=== PATIENT | male | born 1970 | race Two or more races ===

== ENCOUNTER 2018-11-23 14:52 | Emergency (ER) | payer MEDICAID, OTHER ==
[~2018-11-23] VITALS: Ht 165.1 cm; Wt 95.3 kg
[2018-11-23 14:56] VITALS: BP 140/93
== END 2018-11-23 17:32 | disposition home or self-care (01) ==
LOC: ER 14:57
DX: J02.9 Acute pharyngitis, unspecified (principal)

== ENCOUNTER 2020-10-24 11:38 | Inpatient (IN) | payer MEDICAID, OTHER, SELFPAY ==
[~2020-10-24] VITALS: Ht 165.1 cm; Wt 91.6 kg
[2020-10-24 14:44] LABS: Basophils # (auto) 0 10 ^3/uL (0-0.2); Basophils % (auto) 0.2 % (0.0-2.0); Eosinophils # (auto) 0 10 ^3/uL (0-0.8); Hematocrit 41.3 % (41.0-53.0); Hemoglobin 14.4 g/dL (13.5-17.5); Lymphocytes # (auto) 0.9 10 ^3/uL (0.4-5.4); Lymphocytes % (auto) 8.8 % (10.0-50.0); Mean Corpuscular Hgb Conc. 34.9 g/dL (32.0-36.0); Mean Corpuscular Volume 85.7 fL (80.0-100.0); Monocytes # (auto) 0.5 10 ^3/uL (0-1.3); Monocytes % (auto) 5.3 % (0.0-12.0); Neutrophils # (auto) 8.6 10 ^3/uL (1.6-8.6); Neutrophils % (auto) 85.7 % (37.0-80.0); Nucleated Red Blood Cells % 0.2 %; Platelet Count (auto) 161 10^3/uL (140-450); Red Blood Cells 4.82 10^6/uL (4.5-5.90); Red Cell Distribution Width 13.3 % (11.8-14.3)
[2020-10-24 14:46] LABS: Calcium 8.4 mg/dL (8.5-10.1); Potassium 3.8 mmol/L (3.5-5.1)
[2020-10-24 14:50] LABS: BUN/Creatinine Ratio 15.5; Bilirubin, Total 0.4 mg/dL (0.2-1.0); Total Protein 8.2 g/dL (6.4-8.2)
[2020-10-24 14:53] LABS: INR 1.06 (0.9-1.15)
[2020-10-24] MEDS ORDERED: AZITHROMYCIN 500MG/ 250ML 250 ML IV ONE (16:45)
[2020-10-24] MEDS ORDERED: DexAMETHasone SOD PHOS 10MG/1ML VIAL INJ IV ONE (16:45)
[2020-10-24] MEDS ORDERED: ZINC SULFATE 220mg CAP or TAB PO ONE (16:45)
[2020-10-24] MEDS ORDERED: NITROGLYCERIN 0.4 MG SL TAB SL PRN (18:45)
[2020-10-24] MEDS ORDERED: MORPHINE SULF INJ 2 MG/ML SYRINGE 1ML IV PRN ×2 (18:45→19:15)
[2020-10-24] MEDS ORDERED: diphenhdrAMINE HCL 50 MG/1 ML VL IV PRN (19:15)
[2020-10-24] MEDS ORDERED: REMDESIVIR PER PHARMACY 0 ML IV SCH (19:15)
[2020-10-24] MEDS ORDERED: LACTULOSE 20Gm/30ML SOLN PO PRN (19:15)
[2020-10-24] MEDS ORDERED: PROMETHAZINE HCL 25 MG/ML 1ML IV PRN (19:15)
[2020-10-24] MEDS ORDERED: TEMAZEPAM 15 MG CAP PO PRN (19:15)
[2020-10-24] MEDS ORDERED: DEXTROSE (50%) 50ML SYRG IV PRN (19:15)
[2020-10-24] MEDS ORDERED: ACETAMINOPHEN 500 MG TAB PO PRN (19:15)
[2020-10-24] MEDS ORDERED: FAMOTIDINE (10MG/ML) 2ML VL IV SCH (22:00)
[2020-10-24] MEDS: BUDESONIDE (INHALATION) 180 MCG IH IN SCH (22:00)
[2020-10-24] MEDS: FAMOTIDINE 20 MG TAB PO SCH (22:49)
[2020-10-24] MEDS: SODIUM CHLORIDE 0.9% 1,000 ML IV SCH (22:49)
[2020-10-24] MEDS: ENOXAPARIN SOD 40 MG/0.4 ML SYRINGE SC SCH (22:50)
[2020-10-24] MEDS: ACCU-CHEK COMFORT CURVE STRIP VI SCH (22:50)
[2020-10-24] MEDS: InsuLIN REG 1unit/0.01ml Soln (100units/ml) SC SCH (22:51)
[2020-10-25 05:48] LABS: Basophils # (auto) 0 10 ^3/uL (0-0.2); Basophils % (auto) 0.1 % (0.0-2.0); Eosinophils # (auto) 0 10 ^3/uL (0-0.8); Hematocrit 37.3 % (41.0-53.0); Hemoglobin 13.1 g/dL (13.5-17.5); Lymphocytes # (auto) 0.8 10 ^3/uL (0.4-5.4); Lymphocytes % (auto) 7.7 % (10.0-50.0); Mean Corpuscular Hemoglobin 30.3 pg (28.0-32.0); Mean Corpuscular Hgb Conc. 35.2 g/dL (32.0-36.0); Mean Corpuscular Volume 86.1 fL (80.0-100.0); Monocytes # (auto) 0.7 10 ^3/uL (0-1.3); Monocytes % (auto) 6.3 % (0.0-12.0); Neutrophils # (auto) 9.4 10 ^3/uL (1.6-8.6); Neutrophils % (auto) 85.9 % (37.0-80.0); Platelet Count (auto) 168 10^3/uL (140-450); Red Blood Cells 4.33 10^6/uL (4.5-5.90); Red Cell Distribution Width 13.3 % (11.8-14.3); White Blood Cell 10.9 10^3/uL (4.4-10.8)
[2020-10-25 06:05] LABS: Albumin 2.6 g/dL (3.4-5.0); Calcium 8.3 mg/dL (8.5-10.1); Potassium 3.8 mmol/L (3.5-5.1)
[2020-10-25 06:08] LABS: Bilirubin, Total 0.4 mg/dL (0.2-1.0); Total Protein 7.2 g/dL (6.4-8.2)
[2020-10-25] MEDS: ACCU-CHEK COMFORT CURVE STRIP VI SCH ×4 (06:54→22:26)
[2020-10-25] MEDS: InsuLIN REG 1unit/0.01ml Soln (100units/ml) SC SCH ×4 (06:54→22:00)
[2020-10-25] MEDS: SODIUM CHLORIDE 0.9% 1,000 ML IV SCH (07:34)
[2020-10-25 09:30] VITALS: BP 125/76
[2020-10-25] MEDS: ZINC SULFATE 220mg CAP or TAB PO SCH (10:00)
[2020-10-25] MEDS: BUDESONIDE (INHALATION) 180 MCG IH IN SCH ×2 (10:00→19:04)
[2020-10-25] MEDS: DexAMETHasone SOD PHOS 10MG/1ML VIAL INJ IV SCH (10:37)
[2020-10-25] MEDS: levoFLOXacin 500MG 100 ML IV SCH (10:38)
[2020-10-25] MEDS: ASCORBIC ACID 1,000 MG TAB PO SCH (10:38)
[2020-10-25] MEDS: FAMOTIDINE 20 MG TAB PO SCH ×2 (11:51→23:17)
[2020-10-25] MEDS: CHOLECALCIFEROL (VITD3) 2,000 UNIT CAP/TAB PO SCH (11:51)
[2020-10-25] MEDS: ENOXAPARIN SOD 40 MG/0.4 ML SYRINGE SC SCH ×2 (11:52→23:18)
[2020-10-25] MEDS ORDERED: DIPHENOXYLATE W/ATROPINE 2.5 MG TAB PO PRN (15:30)
[2020-10-25 16:00] VITALS: BP 126/77
[2020-10-25] MEDS ORDERED: REMDESIVIR 200 MG in NS 210ml LOADING DOSE ADULT IV ONE (20:00)
[2020-10-25] MEDS: Ensure Enlive Strawberry 8oz Bottle PO SCH (20:17)
[2020-10-25] MEDS: ALBUTEROL SULF HFA 90MCG INH 200DOSE IN PRN (20:26)
[2020-10-25 23:43] VITALS: BP 122/69
[2020-10-26] MEDS: ACCU-CHEK COMFORT CURVE STRIP VI SCH ×4 (06:18→22:01)
[2020-10-26] MEDS: BUDESONIDE (INHALATION) 180 MCG IH IN SCH ×2 (06:38→20:10)
[2020-10-26] MEDS: InsuLIN REG 1unit/0.01ml Soln (100units/ml) SC SCH ×4 (06:49→22:09)
[2020-10-26 08:00] VITALS: BP 116/67
[2020-10-26 08:23] LABS: Basophils # (auto) 0 10 ^3/uL (0-0.2); Basophils % (auto) 0.1 % (0.0-2.0); Eosinophils # (auto) 0 10 ^3/uL (0-0.8); Hemoglobin 12.4 g/dL (13.5-17.5); Lymphocytes % (auto) 6.4 % (10.0-50.0); Mean Corpuscular Hemoglobin 29.6 pg (28.0-32.0); Mean Corpuscular Hgb Conc. 34.5 g/dL (32.0-36.0); Mean Corpuscular Volume 85.7 fL (80.0-100.0); Monocytes # (auto) 0.9 10 ^3/uL (0-1.3); Monocytes % (auto) 6.2 % (0.0-12.0); Neutrophils # (auto) 13.3 10 ^3/uL (1.6-8.6); Neutrophils % (auto) 87.3 % (37.0-80.0); Platelet Count (auto) 220 10^3/uL (140-450); Red Cell Distribution Width 13.4 % (11.8-14.3); White Blood Cell 15.2 10^3/uL (4.4-10.8)
[2020-10-26 08:37] LABS: Calcium 8.3 mg/dL (8.5-10.1); Potassium 3.7 mmol/L (3.5-5.1)
[2020-10-26 08:42] LABS: Albumin 2.3 g/dL (3.4-5.0); BUN/Creatinine Ratio 21.4; Bilirubin, Total 0.5 mg/dL (0.2-1.0); Total Protein 7.2 g/dL (6.4-8.2)
[2020-10-26] MEDS: DexAMETHasone SOD PHOS 10MG/1ML VIAL INJ IV SCH (09:51)
[2020-10-26] MEDS: ASCORBIC ACID 1,000 MG TAB PO SCH (09:51)
[2020-10-26] MEDS: ENOXAPARIN SOD 40 MG/0.4 ML SYRINGE SC SCH ×2 (09:51→22:10)
[2020-10-26] MEDS: FAMOTIDINE 20 MG TAB PO SCH ×2 (09:51→22:10)
[2020-10-26] MEDS: ZINC SULFATE 220mg CAP or TAB PO SCH (09:51)
[2020-10-26] MEDS: levoFLOXacin 500MG 100 ML IV SCH (09:52)
[2020-10-26] MEDS: Ensure Enlive Strawberry 8oz Bottle PO SCH ×3 (09:52→18:45)
[2020-10-26] MEDS: CHOLECALCIFEROL (VITD3) 2,000 UNIT CAP/TAB PO SCH (09:53)
[2020-10-26] MEDS: ALBUTEROL SULF HFA 90MCG INH 200DOSE IN PRN ×2 (09:54→20:11)
[2020-10-26] MEDS: traMADol HCL 50 MG TAB PO PRN ×2 (11:33→15:45)
[2020-10-26 12:16] LABS: CRP High Sensitivity 11.9 mg/dL (< 0.3)
[2020-10-26] MEDS: REMDESIVIR 100 MG in SODIUM CHL 0.9% 250 ML IV SCH (15:28)
[2020-10-27] VITALS: BP 115/68
[2020-10-27] MEDS: ACCU-CHEK COMFORT CURVE STRIP VI SCH ×4 (06:07→22:16)
[2020-10-27] MEDS: InsuLIN REG 1unit/0.01ml Soln (100units/ml) SC SCH ×4 (06:07→22:16)
[2020-10-27 07:27] LABS: Potassium 3.9 mmol/L (3.5-5.1)
[2020-10-27 07:42] LABS: Albumin 2.3 g/dL (3.4-5.0); Bilirubin, Total 0.4 mg/dL (0.2-1.0); Calcium 8.5 mg/dL (8.5-10.1); Total Protein 6.9 g/dL (6.4-8.2)
[2020-10-27 08:00] VITALS: BP 118/65
[2020-10-27] MEDS: Ensure Enlive Strawberry 8oz Bottle PO SCH ×3 (08:00→18:00)
[2020-10-27] MEDS: cefTRIAXone 1GM/50ML D5W 50 ML IV SCH (08:54)
[2020-10-27] MEDS: BUDESONIDE (INHALATION) 180 MCG IH IN SCH ×2 (10:00→19:56)
[2020-10-27] MEDS: DexAMETHasone SOD PHOS 10MG/1ML VIAL INJ IV SCH (10:45)
[2020-10-27] MEDS: AZITHROMYCIN 500MG/ 250ML 250 ML IV SCH (10:45)
[2020-10-27] MEDS: ASCORBIC ACID 1,000 MG TAB PO SCH (10:46)
[2020-10-27] MEDS: CHOLECALCIFEROL (VITD3) 2,000 UNIT CAP/TAB PO SCH (10:46)
[2020-10-27] MEDS: FAMOTIDINE 20 MG TAB PO SCH ×2 (10:46→22:16)
[2020-10-27] MEDS: ZINC SULFATE 220mg CAP or TAB PO SCH (10:46)
[2020-10-27] MEDS: ENOXAPARIN SOD 40 MG/0.4 ML SYRINGE SC SCH ×2 (10:47→22:16)
[2020-10-27] MEDS: ALBUTEROL SULF HFA 90MCG INH 200DOSE IN PRN ×2 (12:42→19:56)
[2020-10-27] MEDS: REMDESIVIR 100 MG in SODIUM CHL 0.9% 250 ML IV SCH (15:53)
[2020-10-27 16:00] VITALS: BP 123/78
[2020-10-28 00:13] VITALS: BP 121/73
[2020-10-28 00:34] VITALS: BP 116/73
[2020-10-28 01:47] VITALS: BP 120/69
[2020-10-28] MEDS: InsuLIN REG 1unit/0.01ml Soln (100units/ml) SC SCH ×4 (06:01→21:33)
[2020-10-28] MEDS: ACCU-CHEK COMFORT CURVE STRIP VI SCH ×4 (06:01→21:19)
[2020-10-28 07:23] LABS: Basophils # (auto) 0 10 ^3/uL (0-0.2); Basophils % (auto) 0.1 % (0.0-2.0); Eosinophils # (auto) 0 10 ^3/uL (0-0.8); Hematocrit 37.8 % (41.0-53.0); Hemoglobin 12.9 g/dL (13.5-17.5); Lymphocytes # (auto) 1.5 10 ^3/uL (0.4-5.4); Lymphocytes % (auto) 13.1 % (10.0-50.0); Mean Corpuscular Hemoglobin 29.6 pg (28.0-32.0); Mean Corpuscular Hgb Conc. 34.3 g/dL (32.0-36.0); Mean Corpuscular Volume 86.4 fL (80.0-100.0); Monocytes # (auto) 1.4 10 ^3/uL (0-1.3); Monocytes % (auto) 12.2 % (0.0-12.0); Neutrophils # (auto) 8.4 10 ^3/uL (1.6-8.6); Neutrophils % (auto) 74.6 % (37.0-80.0); Nucleated Red Blood Cells % 0.1 %; Platelet Count (auto) 375 10^3/uL (140-450); Red Blood Cells 4.38 10^6/uL (4.5-5.90); Red Cell Distribution Width 13.6 % (11.8-14.3); White Blood Cell 11.2 10^3/uL (4.4-10.8)
[2020-10-28] MEDS: ALBUTEROL SULF HFA 90MCG INH 200DOSE IN PRN ×2 (07:24→21:10)
[2020-10-28] MEDS: BUDESONIDE (INHALATION) 180 MCG IH IN SCH ×2 (07:24→21:10)
[2020-10-28 08:00] VITALS: BP 107/51
[2020-10-28] MEDS: Ensure Enlive Strawberry 8oz Bottle PO SCH ×3 (08:00→17:53)
[2020-10-28 08:12] LABS: Albumin 2.4 g/dL (3.4-5.0); BUN/Creatinine Ratio 28.7; Bilirubin, Total 0.4 mg/dL (0.2-1.0); Calcium 8.5 mg/dL (8.5-10.1)
[2020-10-28] MEDS: DexAMETHasone SOD PHOS 10MG/1ML VIAL INJ IV SCH (10:18)
[2020-10-28] MEDS: AZITHROMYCIN 500MG/ 250ML 250 ML IV SCH (10:18)
[2020-10-28] MEDS: cefTRIAXone 1GM/50ML D5W 50 ML IV SCH (10:18)
[2020-10-28] MEDS: ENOXAPARIN SOD 40 MG/0.4 ML SYRINGE SC SCH ×2 (10:19→21:18)
[2020-10-28] MEDS: ASCORBIC ACID 1,000 MG TAB PO SCH (10:19)
[2020-10-28] MEDS: CHOLECALCIFEROL (VITD3) 2,000 UNIT CAP/TAB PO SCH (10:19)
[2020-10-28] MEDS: ZINC SULFATE 220mg CAP or TAB PO SCH (10:19)
[2020-10-28] MEDS: FAMOTIDINE 20 MG TAB PO SCH ×2 (10:19→21:18)
[2020-10-28] MEDS: REMDESIVIR 100 MG in SODIUM CHL 0.9% 250 ML IV SCH (15:19)
[2020-10-28] MEDS ORDERED: SALINE 0.65 % NASAL SPRAY 45ML BOTTLE EACHNOSTRI PRN (15:30)
[2020-10-28 15:59] VITALS: BP 117/71
[2020-10-28] MEDS ORDERED: FUROSEMIDE 20 MG/2 ML VIAL IV ONE (19:30)
[2020-10-28] MEDS ORDERED: POTASSIUM EFFERVESENT TAB 25 MEQ PO ONE (19:30)
[2020-10-29] VITALS: BP 111/70
[2020-10-29] MEDS: ACCU-CHEK COMFORT CURVE STRIP VI SCH ×4 (06:10→22:03)
[2020-10-29] MEDS: InsuLIN REG 1unit/0.01ml Soln (100units/ml) SC SCH ×4 (06:10→22:00)
[2020-10-29 07:26] LABS: Albumin 2.6 g/dL (3.4-5.0); Calcium 8.8 mg/dL (8.5-10.1)
[2020-10-29 07:32] LABS: BUN/Creatinine Ratio 27.6; Bilirubin, Total 0.5 mg/dL (0.2-1.0); Total Protein 7.1 g/dL (6.4-8.2)
[2020-10-29] MEDS: Ensure Enlive Strawberry 8oz Bottle PO SCH ×3 (08:52→18:18)
[2020-10-29] MEDS: ALBUTEROL SULF HFA 90MCG INH 200DOSE IN PRN ×2 (08:55→20:19)
[2020-10-29] MEDS: BUDESONIDE (INHALATION) 180 MCG IH IN SCH ×2 (08:55→20:16)
[2020-10-29 09:00] VITALS: BP 116/77
[2020-10-29] MEDS: DexAMETHasone SOD PHOS 10MG/1ML VIAL INJ IV SCH (09:05)
[2020-10-29] MEDS: cefTRIAXone 1GM/50ML D5W 50 ML IV SCH (09:05)
[2020-10-29] MEDS: ZINC SULFATE 220mg CAP or TAB PO SCH (09:06)
[2020-10-29] MEDS: POTASSIUM EFFERVESENT TAB 25 MEQ PO SCH (09:06)
[2020-10-29] MEDS: FAMOTIDINE 20 MG TAB PO SCH ×2 (09:07→22:03)
[2020-10-29] MEDS: ASCORBIC ACID 1,000 MG TAB PO SCH (09:07)
[2020-10-29] MEDS: CHOLECALCIFEROL (VITD3) 2,000 UNIT CAP/TAB PO SCH (09:07)
[2020-10-29] MEDS: ENOXAPARIN SOD 40 MG/0.4 ML SYRINGE SC SCH ×2 (09:07→22:03)
[2020-10-29] MEDS ORDERED: FUROSEMIDE 20 MG/2 ML VIAL IV SCH (10:00)
[2020-10-29] MEDS: AZITHROMYCIN 500MG/ 250ML 250 ML IV SCH (10:51)
[2020-10-29 16:00] VITALS: BP 103/62
[2020-10-29] MEDS: REMDESIVIR 100 MG in SODIUM CHL 0.9% 250 ML IV SCH (16:00)
[2020-10-30] VITALS: BP 109/70
[2020-10-30] MEDS: ACCU-CHEK COMFORT CURVE STRIP VI SCH ×4 (06:14→22:00)
[2020-10-30] MEDS: InsuLIN REG 1unit/0.01ml Soln (100units/ml) SC SCH ×4 (06:16→22:00)
[2020-10-30 09:00] VITALS: BP 95/63
[2020-10-30] MEDS: ALBUTEROL SULF HFA 90MCG INH 200DOSE IN PRN ×2 (10:28→21:16)
[2020-10-30] MEDS: BUDESONIDE (INHALATION) 180 MCG IH IN SCH ×2 (10:29→19:23)
[2020-10-30] MEDS: cefTRIAXone 1GM/50ML D5W 50 ML IV SCH (10:44)
[2020-10-30] MEDS: ZINC SULFATE 220mg CAP or TAB PO SCH (10:45)
[2020-10-30] MEDS: CHOLECALCIFEROL (VITD3) 2,000 UNIT CAP/TAB PO SCH (10:45)
[2020-10-30] MEDS: AZITHROMYCIN 500MG/ 250ML 250 ML IV SCH (10:45)
[2020-10-30] MEDS: ASCORBIC ACID 1,000 MG TAB PO SCH (10:45)
[2020-10-30] MEDS: ENOXAPARIN SOD 40 MG/0.4 ML SYRINGE SC SCH ×2 (10:45→22:00)
[2020-10-30] MEDS: FAMOTIDINE 20 MG TAB PO SCH ×2 (10:45→22:00)
[2020-10-30] MEDS: POTASSIUM EFFERVESENT TAB 25 MEQ PO SCH (10:45)
[2020-10-30] MEDS: Ensure Enlive Strawberry 8oz Bottle PO SCH ×3 (10:46→18:02)
[2020-10-30] MEDS: DexAMETHasone SOD PHOS 10MG/1ML VIAL INJ IV SCH (10:46)
[2020-10-30] MEDS ORDERED: FUROSEMIDE 20 MG/2 ML VIAL IV SCH (11:26)
[2020-10-30 12:01] LABS: Albumin 2.9 g/dL (3.4-5.0); Potassium 3.7 mmol/L (3.5-5.1)
[2020-10-30 12:06] LABS: BUN/Creatinine Ratio 28.7; Bilirubin, Total 0.4 mg/dL (0.2-1.0); Total Protein 7.9 g/dL (6.4-8.2)
[2020-10-30 16:00] VITALS: BP 108/75
[2020-10-30 20:00] VITALS: BP 93/53
[2020-10-31] VITALS: BP 93/53
[2020-10-31] MEDS: ACCU-CHEK COMFORT CURVE STRIP VI SCH ×4 (06:32→22:00)
[2020-10-31] MEDS: InsuLIN REG 1unit/0.01ml Soln (100units/ml) SC SCH ×4 (06:44→22:05)
[2020-10-31 07:57] VITALS: BP 98/62
[2020-10-31 08:00] VITALS: BP 98/62
[2020-10-31 08:01] LABS: Albumin 2.6 g/dL (3.4-5.0); Calcium 8.7 mg/dL (8.5-10.1); Potassium 4.2 mmol/L (3.5-5.1)
[2020-10-31] MEDS: BUDESONIDE (INHALATION) 180 MCG IH IN SCH ×2 (08:05→19:05)
[2020-10-31 08:06] LABS: Bilirubin, Total 0.4 mg/dL (0.2-1.0)
[2020-10-31] MEDS: cefTRIAXone 1GM/50ML D5W 50 ML IV SCH (08:56)
[2020-10-31] MEDS: POTASSIUM EFFERVESENT TAB 25 MEQ PO SCH (08:57)
[2020-10-31] MEDS: AZITHROMYCIN 500MG/ 250ML 250 ML IV SCH (08:57)
[2020-10-31] MEDS: DexAMETHasone SOD PHOS 10MG/1ML VIAL INJ IV SCH (08:57)
[2020-10-31] MEDS: ENOXAPARIN SOD 40 MG/0.4 ML SYRINGE SC SCH ×2 (08:57→22:00)
[2020-10-31] MEDS: ASCORBIC ACID 1,000 MG TAB PO SCH (08:58)
[2020-10-31] MEDS: Ensure Enlive Strawberry 8oz Bottle PO SCH ×3 (08:58→17:51)
[2020-10-31] MEDS: FAMOTIDINE 20 MG TAB PO SCH ×2 (08:58→22:00)
[2020-10-31] MEDS: ZINC SULFATE 220mg CAP or TAB PO SCH (08:58)
[2020-10-31] MEDS: CHOLECALCIFEROL (VITD3) 2,000 UNIT CAP/TAB PO SCH (08:58)
[2020-10-31] MEDS: FUROSEMIDE 40 MG/4 ML VIAL IV SCH (10:44)
[2020-10-31 16:00] VITALS: BP 98/61
[2020-10-31] MEDS: ALBUTEROL SULF HFA 90MCG INH 200DOSE IN PRN (19:05)
[2020-10-31 20:00] VITALS: BP 102/62
[2020-11-01] VITALS: BP 102/60
[2020-11-01] MEDS: BUDESONIDE (INHALATION) 180 MCG IH IN SCH (06:10)
[2020-11-01] MEDS: InsuLIN REG 1unit/0.01ml Soln (100units/ml) SC SCH ×3 (06:42→17:00)
[2020-11-01] MEDS: ACCU-CHEK COMFORT CURVE STRIP VI SCH ×3 (06:42→17:00)
[2020-11-01 08:00] VITALS: BP 105/72
[2020-11-01] MEDS: cefTRIAXone 1GM/50ML D5W 50 ML IV SCH (09:00)
[2020-11-01] MEDS: Ensure Enlive Strawberry 8oz Bottle PO SCH ×2 (09:00→12:00)
[2020-11-01] MEDS: FUROSEMIDE 40 MG/4 ML VIAL IV SCH (09:01)
[2020-11-01] MEDS: POTASSIUM EFFERVESENT TAB 25 MEQ PO SCH (09:01)
[2020-11-01] MEDS: ZINC SULFATE 220mg CAP or TAB PO SCH (09:01)
[2020-11-01] MEDS: CHOLECALCIFEROL (VITD3) 2,000 UNIT CAP/TAB PO SCH (09:01)
[2020-11-01] MEDS: AZITHROMYCIN 500MG/ 250ML 250 ML IV SCH (09:01)
[2020-11-01] MEDS: DexAMETHasone SOD PHOS 10MG/1ML VIAL INJ IV SCH (09:01)
[2020-11-01] MEDS: FAMOTIDINE 20 MG TAB PO SCH ×2 (09:02→09:22)
[2020-11-01] MEDS: ENOXAPARIN SOD 40 MG/0.4 ML SYRINGE SC SCH (09:02)
[2020-11-01] MEDS: ASCORBIC ACID 1,000 MG TAB PO SCH (09:02)
[2020-11-01 14:49] VITALS: BP 105/72
[2020-11-01 16:00] VITALS: BP 113/67
== END 2020-11-01 17:37 | disposition home or self-care (01) | DRG 720 ==
LOC: ER 11:38 → TELE 18:43 → TELE-EAST 10-25 09:14
PROVIDERS: ADMIT Internal Medicine; ATTEND Internal Medicine
PROC: XW033E5 Introduction of Remdesivir Anti-infective into Peripheral Vein, Percutaneous Approach, New Technology Group 5 (ICD-10-PCS; principal; 2020-10-24)
PROC: XW13325 Transfusion of Convalescent Plasma (Nonautologous) into Peripheral Vein, Percutaneous Approach, New Technology Group 5 (ICD-10-PCS; 2020-10-28)
DX: A41.89 Other specified sepsis (principal); J12.82 Pneumonia due to coronavirus disease 2019; J96.01 Acute respiratory failure with hypoxia; U07.1 COVID-19; D68.59 Other primary thrombophilia; D89.839 Cytokine release syndrome, grade unspecified; E66.9 Obesity, unspecified; E78.5 Hyperlipidemia, unspecified; I10 Essential (primary) hypertension; E11.65 Type 2 diabetes mellitus with hyperglycemia; R65.20 Severe sepsis without septic shock; R74.01 Elevation of levels of liver transaminase levels; Z68.35 Body mass index [BMI] 35.0-35.9, adult; Z79.82 Long term (current) use of aspirin
CPT/HCPCS: 36415; 36600; 71045; 80053; 82728; 82805; 82962; 83036; 83605; 83615; 83735; 85025; 85379; 85610; 86141; 86850; 86900; 86901; 87040; 87426; 93005; 94640; 96365; 96366; 96375; 99291; G0378; J0696; J1100; J1815; J1956; J3490

== ENCOUNTER 2022-05-31 09:42 | Emergency (ER) | payer MEDICAID, OTHER ==
[~2022-05-31] VITALS: Ht 165.1 cm; Wt 97.7 kg
[2022-05-31 11:30] VITALS: BP 117/71
[2022-05-31] MEDS ORDERED: cefTRIAXone SOD 1,000 MG VL IM ONE (11:30)
[2022-05-31] MEDS ORDERED: ACETAMINOPHEN 500 MG TAB PO ONE (11:30)
[2022-05-31] MEDS ORDERED: AZIT500T66 PO (11:33)
[2022-05-31] MEDS ORDERED: ACET-1080 PO (11:33)
[2022-05-31] MEDS ORDERED: PROM1SOL4 PO (11:33)
[2022-05-31] MEDS ORDERED: LIDOCAINE 1% HCL (LOCAL ANESTH.) INJ 20ML MDV ONE (11:34)
== END 2022-05-31 11:49 | disposition home or self-care (01) ==
LOC: ER 09:42
DX: U07.1 COVID-19 (principal); J03.90 Acute tonsillitis, unspecified; I10 Essential (primary) hypertension
CPT/HCPCS: 71045; 96372; 99283; J0696; J2001

== ENCOUNTER 2024-08-06 23:47 | Emergency (ER) | payer OTHER ==
[~2024-08-06] VITALS: Ht 165.1 cm; Wt 97.7 kg
[~2024-08-06 23:47] MED LIST: ACET-1080 PO; AZIT500T66 PO; PROM1SOL4 PO
[2024-08-07 00:06] LABS: Basophils # (auto) 0.1 10 ^3/uL (0-0.2); Eosinophils # (auto) 0.2 10 ^3/uL (0-0.8); Eosinophils % (auto) 1.5 % (0.0-7.0); Hematocrit 42.2 % (41.0-53.0); Hemoglobin 14.4 g/dL (13.5-17.5); Lymphocytes # (auto) 2.6 10 ^3/uL (0.4-5.4); Lymphocytes % (auto) 26.1 % (10.0-50.0); Mean Corpuscular Hemoglobin 30.1 pg (28.0-32.0); Mean Corpuscular Volume 88.3 fL (80.0-100.0); Monocytes # (auto) 0.9 10 ^3/uL (0-1.3); Monocytes % (auto) 8.6 % (0.0-12.0); Neutrophils # (auto) 6.3 10 ^3/uL (1.6-8.6); Neutrophils % (auto) 62.8 % (37.0-80.0); Platelet Count (auto) 252 10^3/uL (140-450); Red Blood Cells 4.78 10^6/uL (4.5-5.90); Red Cell Distribution Width 13.6 % (11.8-14.3); White Blood Cell 10.1 10^3/uL (4.4-10.8)
[2024-08-07 00:20] LABS: INR 1.08 (0.9-1.15); Partial Thromboplastin Time 28.7 SEC (24.5-34.5); Prothrombin Time 11.4 sec (9.3-11.8)
[2024-08-07 00:23] LABS: Alanine Aminotransferase 28 U/L (7-40); Albumin 4.6 g/dL (3.2-4.8); Alkaline Phosphatase 103 U/L (46-116); Anion Gap 4 (5-15); Aspartate Aminotransferase 20 U/L (13-40); BUN/Creatinine Ratio 12.5 (10.0-20.0); Bilirubin, Total 0.4 mg/dL (0.2-1.0); Blood Urea Nitrogen 15 mg/dL (9-23); Calcium 9.7 mg/dL (8.7-10.4); Carbon Dioxide 27 mmol/L (20-31); Chloride 108 mmol/L (98-107); Glucose 114 mg/dL (74-106); Potassium 4.6 mmol/L (3.5-5.1); Sodium 139 mmol/L (136-145); Total Protein 7.6 g/dL (5.7-8.2)
[2024-08-07 01:50] VITALS: BP 165/87; PULSE 69; RESP 12; TEMP 98.4; O2SAT 97
[2024-08-07] MEDS: HYDROcodone-ACET 5/325MG TAB PO ONE (02:00)
[2024-08-07 03:07] VITALS: PULSE 55
== END 2024-08-07 03:11 | disposition home or self-care (01) ==
LOC: ER 23:47
DX: S39.012A Strain of muscle, fascia and tendon of lower back, initial encounter (principal); I10 Essential (primary) hypertension; Z79.899 Other long term (current) drug therapy; V69.9XXA Occupant (driver) (passenger) of heavy transport vehicle injured in unspecified traffic accident, initial encounter; Y93.89 Activity, other specified; Y92.89 Other specified places as the place of occurrence of the external cause; Y99.8 Other external cause status
CPT/HCPCS: 36415; 71045; 72070; 72100; 73030; 80053; 83880; 84484; 85025; 85610; 85730; 93005